=== PATIENT | female | born 1945 | race Caucasian/White ===

== ENCOUNTER → 2016-03-12 | Outpatient (CLI) | payer OTHER, MEDICARE | LOC: MRI 13:39 | DX: M16.12 Unilateral primary osteoarthritis, left hip (principal); M76.52 Patellar tendinitis, left knee; M25.552 Pain in left hip; R10.2 Pelvic and perineal pain ==

== ENCOUNTER 2016-07-07 05:37 | Inpatient (IN) | payer OTHER, MEDICARE ==
[2016-06-22 08:40] LABS: URINE BILIRUBIN NEGATIVE (Negative); URINE BLOOD NEGATIVE (Negative); URINE COLOR YELLOW; URINE GLUCOSE-RANDOM* NEGATIVE (Negative); URINE KETONES NEGATIVE (Negative); URINE LEUKOCYTES-REFLEX TRACE (Negative); URINE PROTEIN (DIPSTICK) NEGATIVE (Negative); URINE UROBILINOGEN 0.2 E.U./dl (0.2-1.0)
[2016-07-07] VITALS (12 sets, daily range): BP systolic 89–161; BP diastolic 53–110
[~2016-07-07] VITALS: Ht 167.6 cm; Wt 83.0 kg
--- NOTE | ~2016-07-07 | O ---
[facility] [place] [address] OPERATIVE REPORT Name: JANETH WHEELER Room #: 150-4 ADM IN M.R.#: [id number] Admission: 07/07/16 Attend Phys: Michael Laguna MD Discharge: Date of : 47 Report #: [id number] THIS REPORT FOR: //name// CC: Michael Ortez DATE OF SERVICE: 07/07/2016 DATE OF OPERATION: 07/07/2016. PREOPERATIVE DIAGNOSIS: Left knee degenerative joint disease, severe. POSTOPERATIVE DIAGNOSIS: Left knee degenerative joint disease, severe. PROCEDURE: Left total knee arthroplasty. SURGEON: Dr. Michael Laguna. BED BUG EXTERMINATOR: Gavino Titus, nurse practitioner. INDICATIONS FOR BED BUG EXTERMINATOR: During the course of operation, extensive manipulation, retraction and limb positioning was required. This was afforded to me by my food and beverage assistant. ANESTHESIA: General. INDICATIONS: See hospital H and P. IMPLANTS UTILIZED: Used a DePuy PFC knee system. Used a femoral component, cruciate retaining size 4 narrow, size 3 tibial tray, 8 mm insert with a 38 mm oval dome patella. DESCRIPTION OF PROCEDURE: After adequate general anesthesia had been obtained, the patient's left lower extremity was prepped and draped in the usual meticulous sterile fashion. Limb was exsanguinated with gravity, tourniquet inflated to 350 torr. An anterior midline incision was made, subQ divided sharply. Hemostasis obtained with electrocautery. Medial parapatellar incision was made. Infrapatellar fat pad excised. Medial release performed. The drill was used to drill the distal femur. This hole was enlarged, irrigated, suctioned, and the intramedullary guide placed the full length of the femur. The distal femoral cutting guide placed at 5 degrees of valgus which matched the patient's anatomy, placed in appropriate rotation and pinned into place and the distal femoral cut was made. Measuring device determined the size 4 was appropriate size in the AP dimension 3 medial to lateral and so we elected to use 4 narrow. The distal femur was marked, cutting guide impacted in place and the anterior, posterior and chamfer cuts were made. [place] was used to remove [facility] [address] [place] [address] OPERATIVE REPORT Name: JANETH WHEELER Jay Room #: 150-4 ADM IN M.R.#: [id number] Admission: 07/07/16 Attend Phys: Michael Laguna MD Discharge: Date of : 47 Report #: [id number] additional osteophytes. At this time, the ACL was transected, tibia translated anteriorly, menisci were excised. Drill was used to drill central portion of the tibia. This hole was enlarged, irrigated, suctioned, and the intramedullary guide placed the full length of tibia. Proximal tibial cutting guide placed at appropriate height. Proximal tibia cut was made, 3 tray gave us the best coverage on the tibia. We put the trial components in position. With the 8 spacer, she had the best flexion and extension gap. She did have slight roll back in flexion, so I elected to release the PCL origin which resulted in improved roll back, patella was then measured, cutting guide clamped into place, patellar cut was made. 38 template gave us the best coverage. Pedicles were drilled, trial component put in position, it tracked normally. At this time, had the tibial keel cuts were made. The distal femur was drilled. The bone plugs were placed proximal tibia and distal femur. We irrigated the knee with both pulse lavage and antibiotic irrigation. The cement was vacuum mixed and when it reached the appropriate consistency, the knee was thoroughly dried, the tibial tray was cemented in place. Excess cement was removed. The liner was impacted into place and the femur was impacted in place and the knee was taken out to 30 degrees of flexion with uniform compression placed across components. Patellar button was then cemented into place and again excess cement was removed. Irrigation was placed in the wound and the cement was allowed to rest in the wound until the cement fully cured. When it had done so, the knee was irrigated, dried thoroughly, and inspected. Drains were placed superolaterally both deep and superficial. Retinacular layer closed with combination of interrupted [id number] #1 Vicryl as well as running #1 Tevdek. SubQ closed with 2-0 Monocryl, skin closed with kathy. Sterile compressive dressing applied. Tourniquet deflated. By: [phone] Michael Laguna MD /nt
[~2016-07-07 05:37] MED LIST: BENICAR40 MG PO; BIOTIN2500 MCG PO; CENTRUM SILVER1 EAC4 PO; HYDROCHLOROTH12.5 M1 PO; MIRALAX17 GM PO; MOBIC7.5 MG PO; PRILOSEC 20 MG20 MG PO; SIMVASTATIN40 MG PO; TYLENOL325 MG PO; VITAMIN D-32000 UNIT PO; ZYRTEC10 M5 PO
[2016-07-08 00:03] VITALS: BP 122/57
[2016-07-08 04:13] VITALS: BP 125/85
[2016-07-08 05:52] LABS: HEMATOCRIT 34.8 % (37.0-47.0); HEMOGLOBIN 11.9 gm/dL (12.0-15.0); MCH 31.9 pg (26.0-34.0); MCHC 34.1 g/dL (28.0-37.0); MCV 93.5 fL (80.0-100.0); RBC 3.72 mil/uL (4.20-5.00); RDW 12.9 % (10.5-14.5); WBC 6.7 thou/uL (4.0-11.0)
[2016-07-08 06:56] VITALS: BP 132/58
[2016-07-08 11:59] VITALS: BP 132/58
[2016-07-08 15:49] VITALS: BP 114/40
[2016-07-08 20:00] VITALS: BP 128/60
[2016-07-09 04:00] VITALS: BP 138/70
[2016-07-09 04:30] VITALS: BP 140/65
[2016-07-09 06:04] LABS: HEMATOCRIT 34.6 % (37.0-47.0); HEMOGLOBIN 11.9 gm/dL (12.0-15.0); MCH 31.9 pg (26.0-34.0); MCHC 34.3 g/dL (28.0-37.0); MCV 92.9 fL (80.0-100.0); RBC 3.72 mil/uL (4.20-5.00); WBC 8.5 thou/uL (4.0-11.0)
[2016-07-09 07:10] VITALS: BP 137/66
[2016-07-09 12:50] VITALS: BP 132/58
[2016-07-09 15:43] VITALS: BP 134/42
[2016-07-09 20:00] VITALS: BP 129/47
[2016-07-10 04:40] LABS: HEMATOCRIT 30.3 % (37.0-47.0); HEMOGLOBIN 10.6 gm/dL (12.0-15.0); MCH 32.3 pg (26.0-34.0); MCHC 34.9 g/dL (28.0-37.0); MCV 92.5 fL (80.0-100.0); RBC 3.27 mil/uL (4.20-5.00); RDW 13.1 % (10.5-14.5); WBC 6.6 thou/uL (4.0-11.0)
[2016-07-10 04:53] VITALS: BP 129/85
[2016-07-10] MEDS ORDERED: XARELTO10 MG PO (06:52)
[2016-07-10] MEDS ORDERED: PERCOCET 10-321 EACH PO (06:52)
[2016-07-10 08:35] VITALS: BP 115/53
[2016-07-10 09:54] VITALS: BP 132/58
[2016-07-10 11:00] VITALS: BP 132/58
[2016-07-10 11:29] VITALS: BP 132/58
== END 2016-07-10 11:32 | disposition home health service (06) | DRG 470 ==
LOC: 4E 05:37 → TBA 05:37 → PRE 05:55 → 4E 10:02 → PRE 15:12 → 4E 07-10 11:32
PROVIDERS: Orthopaedic Surgery
PROC: 0SRD0J9 Replacement of Left Knee Joint with Synthetic Substitute, Cemented, Open Approach (ICD-10-PCS; principal; 2016-07-07)
DX: M17.12 Unilateral primary osteoarthritis, left knee (principal); K21.9 Gastro-esophageal reflux disease without esophagitis; I10 Essential (primary) hypertension; E78.00 Pure hypercholesterolemia, unspecified; Z96.651 Presence of right artificial knee joint; Z87.891 Personal history of nicotine dependence; Z90.721 Acquired absence of ovaries, unilateral
CPT/HCPCS: 10783; 50010; 50101; 50415; 50954; 51130; 51225; 51320; 51412; 51771; 52001; 52282; 53000; 53078; 53364; 56525; 56527; 62110; 62900; 64042; 64043; 70005

== ENCOUNTER → 2017-07-22 | Outpatient (CLI) | payer OTHER, MEDICARE ==
[~2017-07-22] MED LIST changes: +PERCOCET 10-321 EACH PO; +XARELTO10 MG PO
== END ==
LOC: MRI 06:16
DX: M43.17 Spondylolisthesis, lumbosacral region (principal); M46.07 Spinal enthesopathy, lumbosacral region; M48.07 Spinal stenosis, lumbosacral region

== ENCOUNTER → 2018-06-14 | Outpatient (CLI) | payer OTHER, MEDICARE | LOC: EDSTATUS 10:10 → RAD 17:32 → ER 17:32 | DX: M79.604 Pain in right leg (principal) ==

== ENCOUNTER → 2018-07-01 | Outpatient (CLI) | payer OTHER, MEDICARE | LOC: CAT 12:14 | DX: M51.16 Intervertebral disc disorders with radiculopathy, lumbar region (principal); Z98.890 Other specified postprocedural states ==